=== PATIENT | male | born 1955 | race Caucasian/White ===

== ENCOUNTER 2024-03-08 18:23 | Outpatient (REF) | payer MEDICARE, SELFPAY ==
[2024-03-08 22:15] LABS: Abs Immature Grans 0.03 10^3/uL (0.0-0.06); Absolute Basophil Count 0.04 10^3/uL (0.0-0.2); Absolute Eosinophil Count 0.15 10^3/uL (0.0-0.7); Absolute Lymphocyte Count 1.59 10^3/uL (1.2-3.4); Absolute Neutrophil Count 4.42 10^3/uL (1.2-6.7); Basophils % 0.6; Eosinophils % 2.2; HGB 15.1 g/dL (13.5-17.5); Immature Grans % 0.4; Lymphocytes % 23.6; MCHC 33.6 % (32.0-36.0); MCV 90 fL (80-95); Monocytes % 7.4; Neutrophils % 65.8; Platelet Count 180 10^3/uL (130-400); RBC 5.03 10^6/uL (4.36-5.78); RDW 13.3 % (11.8-14.1); RDW-SD 43.5 fL; WBC 6.73 10^3/uL (4.4-10.8)
[2024-03-08 22:50] LABS: ALT 42 U/L (16-63); AST 20 U/L (15-37); Albumin 3.9 g/dL (3.4-5.0); Alkaline Phosphatase 140 U/L (46-116); Anion Gap 8.7 mmol/L (3-11); BUN 15 mg/dL (7-18); Bilirubin, Total 0.7 mg/dL (0.2-1.0); CO2 27.3 mmol/L (21.0-32.0); CREATININE 0.9 mg/dL (0.70-1.30); Calcium 9.2 mg/dL (8.5-10.1); Chloride 109 mmol/L (98-107); Estimated GFR 92.45 (mL/min/1.73m2); Glucose 85 mg/dL (74-106); Potassium 4.3 mmol/L (3.5-5.1); Sodium 145 mmol/L (136-145); TSH (W/Ref FT4) 1.91 uIU/mL (0.36-3.74); Total Protein 6.6 g/dL (6.4-8.2); Uric Acid 5.4 mg/dL (3.5-7.2)
[2024-03-08 23:02] LABS: LDL CHOLESTEROL 65 mg/dL (<100)
[2024-03-08 23:04] LABS: Hemoglobin A1C 5.5 % (<5.7)
== END 2024-03-08 18:24 | disposition home or self-care (01) ==
LOC: NCHCN 18:23
PROVIDERS: Visit Provider Family Medicine
DX: E11.9 Type 2 diabetes mellitus without complications (principal); Z95.5 Presence of coronary angioplasty implant and graft
CPT/HCPCS: 80053; 83721; 83036; 84443; 84550; 85025

== ENCOUNTER → 2024-08-19 14:45 | Outpatient (BNVA) | payer MEDICARE, SELFPAY | PROVIDERS: PCP Family Medicine; Referring Provider Family Medicine; Visit Provider Nurse Practitioner Family | DX: L84 Corns and callosities (principal); M79.672 Pain in left foot | CPT/HCPCS: 11055; 99203 ==

== ENCOUNTER → 2025-03-23 10:50 | Outpatient (BNVA) | payer MEDICARE, SELFPAY | PROVIDERS: PCP Family Medicine; Referring Provider Family Medicine; Visit Provider Podiatrist | DX: Q82.8 Other specified congenital malformations of skin (principal); L84 Corns and callosities; B07.0 Plantar wart; M79.672 Pain in left foot | CPT/HCPCS: 17110 ==

== ENCOUNTER 2025-03-23 11:28 | Emergency (ER) | payer MEDICARE, SELFPAY ==
[2025-03-23 11:38] VITALS: BP 130/84; PULSE 84; RESP 20; TEMP 36.4; O2SAT 97
--- NOTE | 2025-03-23 12:00 | DI.RAD_ITS ---
Exam(s) XR HAND RT COMPLETE EXAM: XR HAND RT COMPLETE CLINICAL HISTORY: Foreign body palm. TECHNIQUE: 2D digital imaging was performed. Three views. COMPARISON: No exams were available for comparison FINDINGS: BONES: No acute fracture is present. No bony destructive lesion is seen. JOINTS: No dislocation present. SOFT TISSUE: Normal. No foreign body identified. IMPRESSION: No foreign body is identified. DATA REPOSITORY: RADIATION DOSE DELIVERED:
--- NOTE | 2025-03-23 12:12 | W.ED.GENAD ---
Discharge Plan Disposition Patient Disposition: Home Condition: Stable Discharge Details Clinical Impression: Foreign body hand-infection Primary Care Provider: Vickey Boyce ED Provider: Linda Reyna Home Meds and New Rx's Prescriptions: New cephalexin 500 mg tablet 500 mg PO BID 10 Days Qty: 20 0RF No Action aspirin 81 mg tablet,chewable 81 mg PO DAILY atorvastatin 80 mg tablet 80 mg PO QPM clopidogrel 75 mg tablet 75 mg PO DAILY levocetirizine 5 mg tablet 5 mg PO QPM PRN niacin 500 mg tablet extended release 500 mg PO QHS metoprolol tartrate 25 mg tablet 25 mg PO BID Discharge Instructions Instructions: Laceration Infection ED, Foreign Body in Skin ED Additional Instructions: At this time due to possible complicated removal and you being on blood thinners I would feel more comfortable referring you to general surgery for the removal of the foreign body. Please take the antibiotic twice daily as directed with yogurt or a probiotic. You were placed on a care management list to assist you with getting a an appointment within the next 1 to 2 weeks with general surgery. You may also call them to make an appointment. Please take Tylenol or Ibuprofen with food every 4-6 hours as needed for pain and swelling. Follow up with primary care provider in 3-5 days. Return to ED sooner if any worsening or concerns. Thank you for allowing us to care for you today. Referrals: Floyd Jain MD [ [facility]YSICIAN] - 1 week Discharge Data Discharge Date/Time-TO BE ENTERED AT DEPARTURE: 03/23/25 14:10 HPI General Mode of arrival: ambulatory. Date/Time Provider Initiated Documentation: 03/23/25 11:46. Limitations to Documentation: no limitations. Information obtained by: patient, RN notes reviewed and old records reviewed. HPI Narrative: 69-year-old male presents to the ER with a chief complaint of right hand redness and swelling after orts reportedly that a large wood splinter was embedded in his palm. He reports this occurred on February 22. He was seen by his PCP at that time and had half of the splinter removed. he also has pain with use of his hand. He is on clopidogrel and aspirin. Does have a history of a cardiac stent and cardiac catheterization. You can palpate a foreign body beneath the surface to his right palm. There is some surrounding erythema. He is requesting to have it removed. Last tetanus was in 2020. Related Data Home Medications ?Medication ?Instructions ?Recorded ?Confirmed aspirin 81 mg chewable tablet 81 mg PO DAILY 08/09/24 03/23/25 atorvastatin 80 mg tablet 80 mg PO QPM 08/09/24 03/23/25 clopidogrel 75 mg tablet 75 mg PO DAILY 08/09/24 03/23/25 levocetirizine 5 mg tablet 5 mg PO QPM PRN 08/09/24 03/23/25 niacin 500 mg tablet,extended 500 mg PO QHS 08/09/24 03/23/25 release cephalexin 500 mg tablet 500 mg PO BID 10 days #20 tabs 03/23/25 metoprolol tartrate 25 mg tablet 25 mg PO BID 03/23/25 03/23/25 Previous Rx's ?Medication ?Instructions ?Recorded cephalexin 500 mg tablet 500 mg PO BID 10 days #20 tabs 03/23/25 Allergies Allergy/AdvReac Type Severity Reaction Status Date / Time metoprolol Allergy Mild fatigue Verified 03/23/25 11:41 General Stated Complaint: RashLesion AILYN: 4 Review of Systems Integumentary/Breasts Skin/Breast: Reports as per HPI, Reports erythema, Reports skin swelling and Reports wounds Exam Extrem Right upper extremity: hand Details: normal capillary refill, tenderness, swelling and foreign body Location: of the palm Location: at the thenar eminence Hand/finger images: 1. Palpable possible foreign body noted to the thenar eminence surrounding erythema and swelling noted. Course Vital Signs Vital signs: Vital Signs Temperature 36.4 C 03/23/25 11:38 Pulse 84 03/23/25 11:38 Respiratory Rate 20 03/23/25 11:38 Blood Pressure 130/84 03/23/25 11:38 Pulse Oximetry 97 03/23/25 11:38 Temperature 36.4 C 03/23/25 11:38 Pulse 84 03/23/25 11:38 Respiratory Rate 20 03/23/25 11:38 Blood Pressure 130/84 03/23/25 11:38 Blood Pressure Position Sitting 03/23/25 11:38 Pulse Oximetry 97 03/23/25 11:38 Oxygen Delivery Method Room Air 03/23/25 11:38 Oxygen Flow Rate 0 03/23/25 11:38 Medical Decision Making 69-year-old male presents to the ER with a chief complaint of right hand redness and swelling after orts reportedly that a large wood splinter was embedded in his palm. He reports this occurred on February 22. He was seen by his PCP at that time and had half of the splinter removed. he also has pain with use of his hand. He is on clopidogrel and aspirin. Does have a history of a cardiac stent and cardiac catheterization. You can palpate a foreign body beneath the surface to his right palm. There is some surrounding erythema. He is requesting to have it removed. Last tetanus was in 2020. X-ray of hand ordered, this patient is complicated by the fact that it has been there for over 20 days, he is on Plavix, and now is starting to have potential infection. X-ray of hand shows no visualized radiographic foreign body. Patient placed on cephalexin twice daily for 10 days. A referral for general surgery was placed. Due to possible complicated procedure by blood thinners and the length of time that this foreign body has been present I am hesitant to do that here in the emergency department. Patient was placed on the care management list to assist him in getting an appointment. This text was generated using [employer] system, please disregard any oddities of phrase or misspellings. Medical Records Medical records reviewed: Yes I reviewed the patient's medical records. Quality:SDOH Health Related Social Needs: No Data to Display PFSH All Active Problems (Updated 03/23/25 @ 13:34 by Linda Reyna NP) Foreign body hand-infection (Acute) Pain in left foot (Acute) Plantar verruca (Acute) Porokeratosis (Acute) Corns and callosities (Acute) Malignant melanoma of skin (Acute) Gout (Chronic) Vascular insufficiency (Acute) Peripheral arterial disease (Acute) Hallux valgus (acquired), right foot (Acute) Low vitamin D level (Acute) Essential hypertension (Acute) T2DM (type 2 diabetes mellitus) (Acute) Medical History Gouty arthritis of left ankle Thyroid nodule Surgical History Hx of heart artery stent Hx of cardiac catheterization Social History Smoking/Tobacco Use Status: Never Smoking risk assessment performed?: Yes Alcohol Intake: never Drug use: Never Substance use type: does not use
[2025-03-23 13:50] VITALS: BP 173/90; PULSE 60; RESP 22; TEMP 36.7; O2SAT 100
[2025-03-23] MEDS: Cephalexin 500 MG CAP PO (14:03)
[2025-03-23 14:07] VITALS: BP 152/80
== END 2025-03-23 14:10 | disposition home or self-care (01) ==
PROVIDERS: Emergency Provider Registered Nurse Emergency; PCP Family Medicine
DX: S60.551A Superficial foreign body of right hand, initial encounter (principal); I10 Essential (primary) hypertension; E11.9 Type 2 diabetes mellitus without complications; Z95.5 Presence of coronary angioplasty implant and graft; Z79.02 Long term (current) use of antithrombotics/antiplatelets; Z79.82 Long term (current) use of aspirin; X58.XXXA Exposure to other specified factors, initial encounter
CPT/HCPCS: 17110; 99283; 73130

== ENCOUNTER → 2025-03-25 14:09 | Outpatient (BNVA) | payer MEDICARE, SELFPAY | PROVIDERS: PCP Family Medicine; Referring Provider Family Medicine; Visit Provider Physical Therapy Assistant | DX: L08.9 Local infection of the skin and subcutaneous tissue, unspecified (principal); S60.551A Superficial foreign body of right hand, initial encounter; X58.XXXA Exposure to other specified factors, initial encounter | CPT/HCPCS: 10120; 99214 ==

== ENCOUNTER 2025-05-11 21:46 | Outpatient (REF) | payer MEDICARE, SELFPAY ==
[2025-05-11 21:08] LABS: HCT 41.5 % (40.0-50.0); HGB 14.2 g/dL (13.5-17.5); MCH 29.9 pg (27.0-33.0); MCHC 34.2 % (32.0-36.0); MCV 87 fL (80-95); Platelet Count 193 10^3/uL (130-400); RBC 4.75 10^6/uL (4.36-5.78); RDW 12.9 % (11.8-14.1); WBC 6.87 10^3/uL (4.4-10.8)
[2025-05-11 21:24] LABS: ALT 50 U/L (16-63); AST 31 U/L (15-37); Alkaline Phosphatase 141 U/L (46-116); Anion Gap 7.1 mmol/L (3-11); BUN 20 mg/dL (7-18); Bilirubin, Total 0.9 mg/dL (0.2-1.0); CO2 26.9 mmol/L (21.0-32.0); CREATININE 1.1 mg/dL (0.70-1.30); Calcium 9.4 mg/dL (8.5-10.1); Chloride 105 mmol/L (98-107); Estimated GFR 71.77 (mL/min/1.73m2); Glucose 101 mg/dL (74-106); LDL CHOLESTEROL 94 mg/dL (<100); Potassium 4.3 mmol/L (3.5-5.1); Sodium 139 mmol/L (136-145); Total Protein 7.1 g/dL (6.4-8.2)
== END 2025-05-11 21:47 | disposition home or self-care (01) ==
LOC: NCHCN 21:46
PROVIDERS: PCP Family Medicine; Visit Provider Family Medicine
DX: I10 Essential (primary) hypertension (principal); E78.2 Mixed hyperlipidemia; M10.9 Gout, unspecified
CPT/HCPCS: 80053; 83721; 85027

== ENCOUNTER → 2025-10-07 15:23 | Outpatient (CLI) | payer MEDICARE, SELFPAY ==
--- NOTE | 2025-10-07 15:00 | DI.RAD_ITS ---
Exam(s) XR TOE LT GREAT EXAM: XR TOE LT GREAT CLINICAL HISTORY: M79.675 Pain left great toe pain, r/o fracture. TECHNIQUE: 2D digital imaging was performed. COMPARISON: No exams were available for comparison FINDINGS: 3 views No evidence of acute fracture or diastasis of the Lisfranc joint. There are multiple soft tissue calcifications adjacent to the medial aspect of the head of the great toe metatarsal and great toe metatarsophalangeal joint, the largest of these calcific densities measuring 5 x 4 mm and not associated with corresponding defects in the adjacent head of the great toe metatarsal. Possibly related to prior trauma or other reason for soft tissue calcification. There are no erosions in the great toe metatarsal head, only mild degenerative changes. No significant findings in the interphalangeal joint of the great toe. There is some periosteal thickening in the diaphysis of the proximal phalanx of the great toe. IMPRESSION: Multilevel osseous and para osseous findings in the great toe which are doubtful for acute fracture. Correlation any history of tophaceous gout recommended remote trauma sequelae. DATA REPOSITORY: RADIATION DOSE DELIVERED:
== END ==
LOC: DI 15:24
PROVIDERS: PCP Family Medicine; Visit Provider Physician Assistant
DX: M79.675 Pain in left toe(s) (principal)
CPT/HCPCS: 73660